=== PATIENT | female | born 1995 | race Caucasian/White ===

== ENCOUNTER 2016-09-12 14:32 | Emergency (ER) | payer SELFPAY ==
[~2016-09-12] VITALS: Ht 162.6 cm; Wt 60.9 kg
[2016-09-12 14:42] VITALS: BP 135/92; RESP 24; O2SAT 98
--- NOTE | 2016-09-12 15:22 | ED.REPORT ---
HPI-Ear Pain/Problem/FB Date of Service Sep 12, 2016 ED Provider: Jacoby Schultz DO 21 year old female with a history of dental abscesses presents to the ER complaining of left ear pain onset last night with bleeding from the ear this morning upon awakening. Associated symptoms include three days of intermittent fever and chills, headache, dizziness, confusion, sore throat, cough, and vomiting. She reports that she has been increasing her fluid intake today. Patient denies swimming recently, low back pain, flank pain, and current . Symptoms treated with ibuprofen this morning. Nursing Notes Stated Complaint: BLEEDING FROM EAR,DIZZY,STOMACH PAIN Chief Complaint: ENT & Mouth Nursing Notes Reviewed: Yes Allergies: Coded Allergies: No Known Allergies (Verified , 01/14/16) Scheduled Amoxicillin/Clav K 875-125 mg (Augmentin 875-125 mg) 1 Each Tablet 1 TABLET PO BID Ofloxacin (Ofloxacin) 5 Ml Drops 10 GTT OT BID Scheduled PRN Naproxen (Naproxen) 500 Mg Tab 500 MG PO BID PRN PRN For Pain Ondansetron ODT (Zofran ODT) 4 Mg Tablet 4 MG PO Q4H PRN PRN For Nausea General Time Seen by MD: 15:22 Chief Complaint Ear problem left, Pain, Bleeding Hx Obtained From: Patient Arrived By: Walk-in Onset Occurred: Yesterday Symptom Duration: Since onset Location: : Inner ear Quality: Painful Severity: Current: Moderate Severity: Maximum: Moderate Associated with: Reports: Chills, Dizziness, Fever, Headache, Nausea, Sore throat, Vomiting, Denies: Swimming Additional Notes: Confusion Past Medical History Past Medical History Poor dentition Chronic dental abscesses Past Surgical History none Family History noncontributory Smoking History Current Every Day Smoker Social History Alcohol Use: "Social" Drug Use: THC Other Social History: Local resident Ambulatory Status Independent Review of Systems Constitutional: Reports: Chills, Fever, Malaise Ears / Nose / Throat: Reports: Ear drainage left (Blood), Earache left, Sore throat, Denies: Ear drainage right, Earache right Complete sys rev & neg: except as marked. Additional Review of Systems Respiratory: Reports: Non-productive cough GI: Reports: Nausea, Vomiting Female: Denies: Flank pain, , Vaginal bleeding - abnl Musculoskeletal: Denies: Back pain, Lumbar pain Neurologic: Reports: Confusion, Dizziness, Headache, Denies: Syncope Physical Exam Initial Vital Signs Vital Signs (First) Date Time Temp Pulse Resp B/P Pulse Ox O2 Delivery O2 Flow Rate FiO2 09/12/16 14:42 37.4 101 24 135/92 98 Room Air Initial VS: Reviewed Head / Eyes: Atraumatic, Normocephalic Neck: Supple, Non-tender, Full range of motion Respiratory: Breath sounds normal, Clear to auscultation, No respiratory distress Cardiovascular: Regular rate & rhythm, Heart sounds normal, Intact distal pulses Abdomen / GI: Soft, Non-tender, No guarding, No rebound, No distention Skin: Warm, Dry, No cyanosis Psychiatric: Mood/affect normal, Behavior normal, Normal thought content General/Constitutional: Awake, Alert, Well developed, Well nourished ENT: Airway patent, Mucous membranes moist, Mastoid area NL Left Ear / Mastoid: Positive: Discharge bloody, Discharge purulent No tenderness, erythema or bogginess over the left mastoid. No pain with manipulation of the left external ear. Neurologic: Oriented X3, Speech NL, No motor deficits, No sensory deficits Interpretation & Diagnostics Lab Results Interpretation Test 09/12/16 15:25 Urine Color Yellow (YELLOW) Urine Appearance Clear (CLEAR,HAZY) Urine pH 5.5 (5.0-8.0) Urine Specific [place] 1.020 (1.003-1.035) Urine Protein Negativemg/dL (NEG,TRACE) Urine Glucose (UA) Negativemg/dL (NEGATIVE) Urine Ketones 15mg/dL (NEGATIVE) Urine Occult Blood Small (NEGATIVE) Urine Nitrite Negative (NEGATIVE) Urine Bilirubin Negative (NEGATIVE) Urine Urobilinogen Normalmg/dL (NORMAL) Urine Leukocyte Esterase Trace (NEGATIVE) Urine RBC 3-10/hpf (0-2) Urine WBC 6-10/hpf (0-5) Urine Epithelial Cells Moderate/hpf (NONE-MOD) Urine Crystals None seen (NONE SEEN) Urine Bacteria None/hpf (NONE-FEW) Urine Hyaline Casts None/lpf (NONE) Urine Granular Casts None seen (NONE SEEN) Urine Waxy Casts None seen (NONE SEEN) Urine Red Blood Cell Casts None seen (NONE SEEN) Urine White Blood Cell Casts None seen (NONE SEEN) Urine Mucus None seen (None Seen) Urine Trichomonas None seen (NONE SEEN) Urine Yeast None (NONE SEEN) Urinalysis Comment None Urine Culture Reflexed Indicated Re-Eval/Medical Decision Med Decision/Clinical Course Clinical history and exam seemed consistent with acute otitis media with tympanic membrane perforation. No evidence of mastoiditis or malignant otitis externa, no neurologic deficits to suggest brain abscess or deep space in extension, afebrile. Overall well-appearing. Inconsistent with meningitis clinically. Given the probable perforation ENT is consulted and agrees with both oral and topical antibiotic therapy, they have recommended follow-up in 1 week and have coordinated tympanogram and audiogram prior to physician encounter. Return precautions given. Source of Hx: Old records Re-Evaluation/Progress #1: Time of Eval: 15:50 Re-Evaluation/Progress Note: Discussed physical examination findings and plan to discharge. Patient is amenable to the plan. Return precautions given. All other questions addressed. Re-Evaluation/Progress #2: Time of Eval: 16:12 Re-Evaluation/Progress Note: Discussed ENT consult. Verbal discharge instructions given. 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 Graves, ENT. Avoid water and Q-tips. Start on course of ofloxacin. Patient needs audiogram and tympanogram prior to visit. Counseled Regarding: Diagnosis, Lab results, Need for follow-up, When/why to return to ED Discharge & Departure Primary Impression: Otitis media Additional Impression: Tympanic membrane perforation Disposition: Home Discharge Condition All VS Reviewed: Yes Condition: Stable Patient Instructions: Otitis Media (ED), Tympanic Membrane Perforation (DC) Additional Instructions: It is difficult to determine a definitive cause for your pain, but I believe that you are experiencing symptoms of acute otitis media with perforation. Follow up with the ENT provider (Dr. William Graves) this week at the number provided. You will need to have an audiogram and tympanogram prior to your visit with Dr. Graves. * Avoid submerging your head in water. Showering is ok as long as you make an effort not to get water in the affected ear. Use a Vaseline-soaked cotton ball to help prevent water getting into your ear. Do not use Q-tips. I have prescribed you Augmentin, please take this as directed. It is important that you finish the entire course of Augmentin, even if you are feeling better. Use the ofloxacin eye drops as directed. Return to the ER or follow up with ear nose and throat sooner if she feels her symptoms are worsening. Referrals: Emily Medrano MD (PCP) William Graves MD Attestation Portions of this note were transcribed by Jim Lazo. I, Dr. Schultz, personally performed the history, physical exam and medical decision-making; I reviewed and confirmed the accuracy of the information in the transcribed note. Signed by: Yulisa Gutiérrez, 09/12/2016 and 16:19 copies to: Emily Medrano MD; William Graves MD, Timothy S DO Sep 12, 2016 15:22 JIM LAZO Sep 12, 2016 15:26
[2016-09-12 15:47] LABS: APPEARANCE,URINE CLEAR (CLEAR,HAZY); COLOR,URINE YELLOW (YELLOW); OCCULT BLOOD,URINE SMALL (NEGATIVE); PH,URINE 5.5 (5.0-8.0); UROBILINOGEN,URINE NORMAL (NORMAL)
[2016-09-12] MEDS ORDERED: Amoxicillin-Clav 875-125 mg Tablet PO ONE (16:05)
[2016-09-12] MEDS ORDERED: OFLO5DRO9 OT (16:34)
[2016-09-12] MEDS ORDERED: ONDA4TAB9 PO (16:34)
[2016-09-12] MEDS ORDERED: AMOX-366 PO (16:34)
[2016-09-12] MEDS ORDERED: NPR500T PO (16:34)
[2016-09-12 16:41] VITALS: BP 134/88; PULSE 101; RESP 20; O2SAT 98
== END 2016-09-12 16:31 | disposition home or self-care (01) ==
LOC: SED 14:32
DX: H66.012 Acute suppurative otitis media with spontaneous rupture of ear drum, left ear (principal); F17.200 Nicotine dependence, unspecified, uncomplicated; Z87.19 Personal history of other diseases of the digestive system

== ENCOUNTER 2016-12-21 09:41 | Emergency (ER) | payer OTHER ==
[~2016-12-21] VITALS: Ht 163.8 cm; Wt 62.3 kg
[~2016-12-21 09:41] MED LIST: AMOX-366 PO; NPR500T PO; OFLO5DRO9 OT; ONDA4TAB9 PO
[2016-12-21 09:46] VITALS: BP 122/84; PULSE 70; RESP 15; O2SAT 100
[2016-12-21 10:00] VITALS: BP 116/60; PULSE 68; RESP 16; O2SAT 99
--- NOTE | 2016-12-21 10:09 | ED.REPORT ---
HPI-General Illness Date of Service December 21, 2016 ED Provider: Ar Rose MD 21 year old female who is currently in the first trimester of presents to the ER complaining of ten days of right hip vs right low back pain. Pain is throbbing in character and is exacerbated by laying on her right side, and putting pressure on the affected joint. Associated symptoms include vaginal discharge, nausea, and vomiting. Patient denies abdominal pain, pelvic pain, bowel or urinary incontinence, and any numbness/weakness. Symptoms have been treated with Tylenol, last dose at 04:00 this morning. Nursing Notes Stated Complaint: HIP HURTS/2WKS Chief Complaint: Extremity Trauma Nursing Notes Reviewed: Yes Allergies: Coded Allergies: No Known Allergies (Verified , 01/14/16) Scheduled Amoxicillin/Clav K 875-125 mg (Augmentin 875-125 mg) 1 Each Tablet 1 TABLET PO BID Ofloxacin (Ofloxacin) 5 Ml Drops 10 GTT OT BID Scheduled PRN Naproxen (Naproxen) 500 Mg Tab 500 MG PO BID PRN PRN For Pain Ondansetron ODT (Zofran ODT) 4 Mg Tablet 4 MG PO Q4H PRN PRN For Nausea General Time Seen by MD: 10:05 Chief Complaint Other (Right Hip/Low Back Pain) Hx Obtained From: Patient Arrived By: Walk-in Sudden in Onset?: No Onset Occurred: More than a week ago... (10 days) Symptom Duration: Since onset Location: : Back: Hip right Quality: Painful, Throbbing Severity: Current: Moderate Severity: Maximum: Moderate Associated with: Reports: Nausea, Vomiting, Denies: Numb extremities Pertinent Negative: Pt denies other symptoms Similar Sx Previous: No Past Medical History Past Medical History Poor dentition Chronic dental abscesses Past Surgical History none Family History noncontributory Smoking History Current Every Day Smoker Social History Alcohol Use: "Social" Drug Use: THC Other Social History: Local resident Ambulatory Status Independent Review of Systems Full Review of Systems Constitutional: Denies: Chills, Fever GI: Reports: Nausea, Vomiting, Denies: Abdominal pain Female: Reports: , Vaginal discharge, Denies: Dysuria, Pelvic pain Musculoskeletal: Reports: Back pain, Joint pain (Right Hip), Denies: Extremity pain, Neck pain, Thoracic pain Neurologic: Denies: Bladder dysfunction, Bowel dysfunction, Focal weakness, Numbness, Weakness Complete sys rev & neg: except as marked. Physical Exam Vital Signs Vital Signs Date Time Temp Pulse Resp B/P Pulse Ox O2 Delivery O2 Flow Rate FiO2 12/21/16 13:06 36.9 58 18 111/57 100 Room Air 12/21/16 13:03 36.9 58 18 111/57 100 Room Air 12/21/16 10:00 37.1 68 16 116/60 99 Room Air 12/21/16 09:46 36.6 70 15 122/84 100 Initial VS: Reviewed Skin: Warm, Dry, No cyanosis Neurologic: Alert, Oriented, Nonfocal Psychiatric: Mood/affect normal, Behavior normal, Normal thought content General/Constitutional: Awake, Alert, Well appearing, Well developed, Well hydrated, Well nourished Neck: Supple, No meningismus, Full range of motion, No swelling, Non-tender, No masses Respiratory / Chest: Breath sounds NL, No respiratory distress, No rales, No rhonchi, No wheezing Cardiovascular: Heart rate NL, Regular rhythm, Heart sounds NL, Cap refill not delayed, Peripheral circulation NL Abdomen: Soft, No guarding, No rebound, No distention Tender lower abdomen. Back: Inspection NL, Full range of motion, No midline vertebral tend, No CVA tenderness Tender right lower back. Lower Extremity / Pelvis / MS: Full range of motion, No swelling, Non-tender, No deformity, Neurologic intact, Vascular intact Interpretation & Diagnostics Lab Results Interpretation Result Diagram: 12/21/16 1026 12/21/16 1026 Test 12/21/16 10:05 12/21/16 10:26 Urine Color Straw (YELLOW) Urine Appearance Hazy (CLEAR,HAZY) Urine pH 7.5 (5.0-8.0) Urine Specific [place] 1.010 (1.003-1.035) Urine Protein Negativemg/dL (NEG,TRACE) Urine Glucose (UA) Negativemg/dL (NEGATIVE) Urine Ketones Negativemg/dL (NEGATIVE) Urine Occult Blood Negative (NEGATIVE) Urine Nitrite Negative (NEGATIVE) Urine Bilirubin Negative (NEGATIVE) Urine Urobilinogen Normalmg/dL (NORMAL) Urine Leukocyte Esterase Negative (NEGATIVE) Urine RBC 0-2/hpf (0-2) Urine WBC 0-5/hpf (0-5) Urine Epithelial Cells Occasional/hpf (NONE-MOD) Urine Crystals None seen (NONE SEEN) Urine Bacteria Moderate/hpf (NONE-FEW) Urine Hyaline Casts None/lpf (NONE) Urine Granular Casts None seen (NONE SEEN) Urine Waxy Casts None seen (NONE SEEN) Urine Red Blood Cell Casts None seen (NONE SEEN) Urine White Blood Cell Casts None seen (NONE SEEN) Urine Mucus None seen (None Seen) Urine Trichomonas None seen (NONE SEEN) Urine Yeast None (NONE SEEN) Urinalysis Comment None Urine Culture Reflexed Indicated Hold Urine Received (Received) White Blood Count 6.9th/mm3 (3.8-10.1) Red Blood Count 3.83mil/mm3 (3.90-5.20) Hemoglobin 12.0g/dL (12.0-15.6) Hematocrit 34.3% (35.0-46.0) Mean Corpuscular Volume 89.6fL (81-100) Mean Corpuscular Hemoglobin 31.3pg (27.0-35.0) Mean Corpuscular Hemoglobin Concent 35.0% (32.0-37.0) Red Cell Distribution Width 12.9% (12.3-15.4) Platelet Count 314bil/L (150-400) Sodium Level 137mEq/L (134-144) Potassium Level 4.1mEq/L (3.5-5.2) Chloride Level 102mEq/L (97-108) Carbon Dioxide Level 21mmol/L (18-29) Blood Urea Nitrogen 8mg/dL (6-20) Creatinine 0.46mg/dL (0.57-1.00) Estimat Glomerular Filtration Rate 241mL/min (>59) Glucose Level 98mg/dL (60-99) Calcium Level 8.8mg/dL (8.5-10.1) Total Bilirubin 0.2mg/dL (0.0-1.2) Aspartate Amino Transf (AST/SGOT) 11U/L (0-50) Alanine Aminotransferase (ALT/SGPT) 15U/L (0-32) Alkaline Phosphatase 70U/L (25-150) Total Protein 6.3g/dL (6.4-8.4) Albumin 3.6g/dL (3.4-5.0) HCG Beta Subunit [id number]/mL Hold Kirby Top Tube Received (Received) US FAST Exam Negative. Exam Performed by: ED physician Exam Type: Diagnostic Clinical Category: Symptom-based Exam Interpreted by: ED physician Indication: Abdominal pain, Re-Eval/Medical Decision Med Decision/Clinical Course 21-year-old female 12 weeks satting with right lower back pain. Denies since symptoms of infection. Showed mild lower abdominal tenderness on exam. Ultrasound was pressure performed which showed intrauterine , normal ovaries. Appendix was not visualized. This is pain resolved with Tylenol. Pain is reproducible right lower back possibly musculoskeletal. Urine is negative for infection or blood. Patient was discharged home with follow-up with her [employer] return precautions given. Source of Hx: Old records Time of Eval: 11:02 Re-Evaluation/Progress Note: Performed EFAST exam. Time of Eval: 12:09 Re-Evaluation/Progress Note: US in room. Patient is requesting pain control. Updated patient on the plan of care. Time of Eval: 13:00 Re-Evaluation/Progress Note: Discussed lab and imaging results and plan to discharge. Patient is amenable to the plan. Return precautions given. All other questions addressed. Counseled Regarding: Diagnosis, Lab results, Need for follow-up, When/why to return to ED Discharge & Departure Primary Impression: Additional Impression: Musculoskeletal back pain Disposition: Home Discharge Condition All VS Reviewed: Yes Condition: Stable Patient Instructions: Abdominal Pain in (ED) Additional Instructions: Your evaluation today is reassuring. Your US did not reveal any dangerous cause for your symptoms. Take Tylenol as needed for pain. Follow-up with your OBGYN in 1-2 days. Return to the ER if you develop new or worsening abdominal/back pain, vaginal bleeding, vaginal discharge, fever, nausea, vomiting, or any other concerning symptoms. Referrals: Emily Medrano MD (PCP) Yulisa Attestation Portions of this note were transcribed by Jim Lazo. I, Dr. Rose, personally performed the history, physical exam and medical decision-making; I reviewed and confirmed the accuracy of the information in the transcribed note. Signed by: Yulisa Gutiérrez, 12/21/2016 at 13:00 copies to: Emily Medrano MD, Ben M MD December 21, 2016 10:09 JIM LAZO December 21, 2016 10:17
[2016-12-21 10:33] LABS: Mean Corpuscular Hemoglobin 31.3 pg (27.0-35.0); Mean Corpuscular Volume 89.6 fL (81-100)
[2016-12-21 10:54] LABS: APPEARANCE,URINE HAZY (CLEAR,HAZY); COLOR,URINE STRAW (YELLOW); OCCULT BLOOD,URINE NEGATIVE (NEGATIVE); PH,URINE 7.5 (5.0-8.0); UROBILINOGEN,URINE NORMAL (NORMAL)
[2016-12-21 13:03] VITALS: BP 111/57; PULSE 58; RESP 18; O2SAT 100
[2016-12-21 13:06] VITALS: BP 111/57; PULSE 58; RESP 18; O2SAT 100
--- NOTE | 2016-12-21 13:29 | DRSVH ---
PROCEDURE: US OB<14 WKS+OB TRANSVAG INDICATIONS: lower abd pain r/o ectopic OUTSIDE/PRIOR DATING DATA: Last menstrual period (LMP): Unknown. First dating scan (date and location): 12/21/16. Estimated date of delivery (PAM) from first dating scan: 07/03/17. TECHNIQUE: Real-time scanning was performed of the fetus and maternal pelvic organs, with image documentation. Endovaginal scanning was also performed to better visualize the fetus and maternal ovaries. COMPARISON: None. FINDINGS: Embryo: OB-LEGAL RECORDS CLERK Ultrasound Procedure Report Early Gestation [employer] Biparietal diameter: 1.6 cm Gestational Age: 12 weeks 2 days Summary Fetus Summary Heart Rate: 162 bpm Comments: A normal yolk sac is noted. No perigestational bleeds. Measurement variability in dating: +/- 4 weeks by LMP, +/- 7 days by mean sac diameter (use before 6 weeks gestation if crown-rump length not able to be measured), +/- 5 days by crown-rump length (6-12 weeks gestation). Maternal organs: Ovaries appear within normal size limits without adnexal masses. There is a small amount of free fluid in the pelvis. IMPRESSION: 1. Single living interuterine with calculated gestational age of 12 weeks 2 days correspon ding to an estimated delivery date of 07/03/17. 2. No perigestational hematomas or adnexal masses. Dictated by: Benjie Lindsay M.D. on 12/21/2016 at 12:24 Approved by: Benjie Lindsay M.D. on 12/21/2016 at 12:27
--- NOTE | 2016-12-21 17:13 | DRSVH ---
PROCEDURE: US APPENDIX INDICATIONS: lower abd pain r/o ectopic/appy TECHNIQUE: Real-time focused scanning was performed of the abdomen with attention to the appendix, with image do cumentation. COMPARISON: None. FINDINGS: Limited evaluation of the right lower quadrant demonstrates no abnormalities. The appendix is not cl early identified sonographically. No abnormal fluid collections or masses seen. Right ovary appears grossly normal containing a 16mm mildly complex cyst. IMPRESSION: The appendix is not visualized and cannot be assessed. Dictated by: Adolfo PIMENTEL Interpreted: Aranza Lainez MD on 12/21/2016 at 17:11 Transcribed by: [email or web address] on 12/21/2016 at 17:11 Approved by: Aranza Lainez MD, PhD on 12/21/2016 at 17:11
== END 2016-12-21 13:08 | disposition home or self-care (01) ==
LOC: SED 09:41
DX: O99.89 Other specified diseases and conditions complicating pregnancy, childbirth and the puerperium (principal); M54.9 Dorsalgia, unspecified; N89.8 Other specified noninflammatory disorders of vagina; R11.2 Nausea with vomiting, unspecified; F17.200 Nicotine dependence, unspecified, uncomplicated; Z3A.12 12 weeks gestation of pregnancy